=== PATIENT | female | born 1975 | race Caucasian/White ===

== ENCOUNTER 2019-06-21 18:45 | Observation (INO) ==
[2019-06-21] MEDS ORDERED: Albuterol 2.5 MG/3 ML NEBULIZER IH ONE (18:58)
[2019-06-21] MEDS ORDERED: 0.9 % Sodium Chloride 1,000 ML IV ONE (19:03)
[2019-06-21 19:25] LABS: Bilirubin,Urine Negative (Negative); Blood,Urine Trace (Negative); Clarity,Urine Cloudy (Clear); Color,Urine Yellow (Yellow); Glucose,Urine (UA) Normal (Normal); Ketones,Urine Negative (Negative); Leukocyte Esterase,Urine Negative (Negative); Nitrite,Urine Negative (Negative); Protein,Urine Negative (Neg-Trace); Specific Gravity,Urine 1.006 (1.010-1.025); Urobilinogen,Urine Normal (Normal)
[2019-06-21 19:26] LABS: Bacteria,Urine None Seen per hpf (None-Few); Hyaline Casts,Urine None Seen per lpf (None-Few); RBC,Urine 0-3 per hpf (0-3); Squamous Epithelial Cell,Urine Many per lpf (None-Few); WBC,Urine 0-3 per hpf (0-3)
[2019-06-21] MEDS ORDERED: cefTRIAXone 1,000 MG in 0.9 % Sodium Chloride Mini Bag 100 ML IVPB ONE (19:41)
[2019-06-21] MEDS ORDERED: Azithromycin 500 MG in 0.9 % Sodium Chloride 250 ML IVPB ONE (19:41)
[2019-06-21 19:51] LABS: Basophils % 0.3 %; Eosinophils # 0.2 K/mcL (0.0-0.6); Eosinophils % 3.4 %; Hematocrit 38.1 % (35.3-44.9); Hemoglobin 12.2 g/dL (11.5-15.4); Immature Granulocytes % 0.3 % (0-4); Lymphocytes # 1.7 K/mcL (0.6-4.6); Lymphocytes % 24.4 %; Mean Corpuscular Hemoglobin 29.1 pg (28.0-33.3); Mean Corpuscular Volume 90.9 fL (83.0-100.0); Monocytes # 0.4 K/mcL (0.0-1.3); Monocytes % 5.8 %; Neutrophils # 4.6 K/mcL (1.6-8.9); Platelet Count 287 K/mcL (140-400); Red Blood Count 4.19 M/mcL (3.82-4.97); Segmented Neutrophils % 65.8 %
[2019-06-21 20:21] LABS: BUN/Creatinine Ratio 8 (6-26); Blood Urea Nitrogen 5 mg/dL (6-20); Calcium 9.5 mg/dL (8.6-10.3); Carbon Dioxide 29 mEq/L (23-29); Chloride 98 mEq/L (98-107); Glucose 102 mg/dL (70-105); Osmolality,Calculated 281 (280-300); Potassium 3.2 mEq/L (3.5-5.1); Sodium 137 mEq/L (136-145); eGFR For African Americans > 60 (> 60); eGFR For Non-African Americans > 60 (> 60)
[2019-06-21 20:22] LABS: Troponin I < 0.03 ng/mL (< 0.04)
[2019-06-21] MEDS ORDERED: Potassium Chloride Elixir 20 MEQ/15 ML UDC PO ONE (22:14)
[2019-06-21] MEDS ORDERED: Ondansetron 4 MG/2 ML VIAL IVP PRN (22:14)
[2019-06-21] MEDS: Ipratropium/Albuterol Neb 3 ML IH SCH (23:15)
[2019-06-21] MEDS: Ringers Solution, Lactated 1,000 ML IVC SCH (23:40)
[2019-06-21] MEDS: Azithromycin 500 MG in D5% in Water 250 ML IVPB SCH (23:50)
[2019-06-21] MEDS: GuaiFENesin Liq 200 MG/10 ML UDC PO PRN (23:54)
[2019-06-21] MEDS: Acetaminophen 325 MG TABLET PO PRN (23:54)
[2019-06-22] MEDS: Ipratropium/Albuterol Neb 3 ML IH SCH ×6 (05:16→23:29)
[2019-06-22] MEDS: *HR* Heparin 5,000 UNIT/ML VIAL SQ SCH ×2 (06:17→17:01)
[2019-06-22] MEDS: Ringers Solution, Lactated 1,000 ML IVC SCH (06:54)
[2019-06-22] MEDS: Azithromycin 500 MG in D5% in Water 250 ML IVPB SCH (08:02)
[2019-06-22] MEDS: cefTRIAXone 1,000 MG in Water for inj. (sterile) 10 ML IVPB SCH (08:02)
[2019-06-22] MEDS: Acetaminophen 325 MG TABLET PO PRN (13:59)
[2019-06-23] MEDS: GuaiFENesin Liq 200 MG/10 ML UDC PO PRN (00:18)
[2019-06-23] MEDS: Ipratropium/Albuterol Neb 3 ML IH SCH ×2 (03:16→07:30)
[2019-06-23] MEDS: Acetaminophen 325 MG TABLET PO PRN (03:22)
[2019-06-23] MEDS: *HR* Heparin 5,000 UNIT/ML VIAL SQ SCH (05:31)
[2019-06-23 05:35] VITALS: BP 107/69
[2019-06-23] MEDS: cefTRIAXone 1,000 MG in Water for inj. (sterile) 10 ML IVPB SCH (07:52)
[2019-06-23] MEDS: Azithromycin 500 MG in D5% in Water 250 ML IVPB SCH (07:53)
[2019-06-23 08:43] LABS: Hematocrit 39.1 % (35.3-44.9); Hemoglobin 12.5 g/dL (11.5-15.4); Mean Corpuscular Hemoglobin 29.3 pg (28.0-33.3); Mean Corpuscular Volume 91.8 fL (83.0-100.0); Mean Platelet Volume 10.5 fL (9.4-12.4); Platelet Count 313 K/mcL (140-400); Red Blood Count 4.26 M/mcL (3.82-4.97); Red Cell Distribution Width 13.3 % (11.5-14.5); White Blood Count 7.8 K/mcL (4.3-11.1)
[2019-06-23 09:06] LABS: Blood Urea Nitrogen 4 mg/dL (6-20); Calcium 9.2 mg/dL (8.6-10.3); Carbon Dioxide 25 mEq/L (23-29); Chloride 100 mEq/L (98-107); Glucose 137 mg/dL (70-105); Osmolality,Calculated 283 (280-300); Potassium 3.8 mEq/L (3.5-5.1); Sodium 137 mEq/L (136-145)
[2019-06-23] MEDS ORDERED: Ibuprofen 400 MG TABLET PO ONE (09:25)
[2019-06-23 09:34] LABS: BUN/Creatinine Ratio 6 (6-26); eGFR For African Americans > 60 (> 60); eGFR For Non-African Americans > 60 (> 60)
== END 2019-06-23 10:22 | disposition home or self-care (01) ==
LOC: 2ANU 18:45 → EMEROOARM 18:45 → SUATTDRO 21:15 → 2ANU 21:50
PROVIDERS: ADMIT Internal Medicine; ATTEND Internal Medicine